=== PATIENT | male | born 1940 | race Caucasian/White ===

== ENCOUNTER → 2020-11-09 | Outpatient (CLI) | payer MEDICARE ==
[~2020-11-09] MED LIST: CLINDAMYCIN IVPB 600MG/50ML 50 ML IV SCH; LACTATED RINGERS 1000ML 1,000 ML IV SCH; ROPIVICAINE 250MG+KETOROLAC 15MG+EPINEPHRINE 0.3+CLONIDINE 80 IV PRN
[2020-11-09 15:22] LABS: EOSINOPHILS % (AUTO) 6.4 % (0.0-8.0); HEMATOCRIT 38.7 % (42-54); LYMPHOCYTES % (AUTO) 37.1 % (21.0-51.0); MEAN CORPUSCULAR HEMOGLOBIN 30.4 pg (27.0-33.0); MEAN CORPUSCULAR HGB CONC 32.8 g/dL (32.0-36.0); MEAN CORPUSCULAR VOLUME 92.6 fL (79-99); NEUTROPHILS % (AUTO) 44.6 % (40.0-77.0); PLATELET COUNT (AUTO) 277 K/uL (130-400); RED BLOOD CELL COUNT(AUTO) 4.18 MIL/uL (4.50-6.20); RED CELL DISTRIBUTION WIDTH 14.3 % (11.0-15.5); WHITE BLOOD COUNT (AUTO) 7.7 K/uL (4.8-10.8)
[2020-11-09 15:34] LABS: CREATININE 1.3 mg/dL (0.5-1.5); POTASSIUM 4.6 mmol/L (3.5-5.1)
[2020-11-09 15:35] LABS: INR 0.97 (0.85-1.15); PROTHROMBIN TIME 10.6 SEC (9.6-11.6)
[2020-11-09 15:36] LABS: PARTIAL THROMBOPLASTIN TIME 26.2 SEC (26.3-35.5)
== END | disposition home or self-care (01) ==
LOC: DAH 10:00 → EDSTATUS 14:00
PROVIDERS: ATTEND Orthopaedic Surgery
DX: Z01.818 Encounter for other preprocedural examination (principal); Z20.822 Contact with and (suspected) exposure to COVID-19; M17.11 Unilateral primary osteoarthritis, right knee; Z79.01 Long term (current) use of anticoagulants
CPT/HCPCS: 36415; 73560; 80048; 85025; 85610; 85730; 87635; 87641; C9803; J3490

== ENCOUNTER 2020-12-06 06:36 | Observation (INO) | payer MEDICARE ==
[2020-12-01 12:47] LABS: BASOPHILS % (AUTO) 0.8 % (0.0-5.0); EOSINOPHILS % (AUTO) 7.3 % (0.0-8.0); HEMATOCRIT 38.7 % (42-54); LYMPHOCYTES % (AUTO) 30.7 % (21.0-51.0); MEAN CORPUSCULAR HEMOGLOBIN 30.5 pg (27.0-33.0); MEAN CORPUSCULAR HGB CONC 32.8 g/dL (32.0-36.0); MEAN CORPUSCULAR VOLUME 92.8 fL (79-99); MONOCYTES % (AUTO) 10.2 % (3.0-13.0); NEUTROPHILS % (AUTO) 50.1 % (40.0-77.0); PLATELET COUNT (AUTO) 304 K/uL (130-400); RED BLOOD CELL COUNT(AUTO) 4.17 MIL/uL (4.50-6.20); RED CELL DISTRIBUTION WIDTH 14.3 % (11.0-15.5); WHITE BLOOD COUNT (AUTO) 7.8 K/uL (4.8-10.8)
[2020-12-01 12:56] LABS: PROTHROMBIN TIME 10.9 SEC (9.6-11.6)
[2020-12-01 12:57] LABS: PARTIAL THROMBOPLASTIN TIME 25.9 SEC (26.3-35.5)
[2020-12-01 13:21] LABS: CREATININE 1.2 mg/dL (0.5-1.5); POTASSIUM 4.3 mmol/L (3.5-5.1)
[2020-12-05 12:53] VITALS: BP 138/64
[~2020-12-06] VITALS: Ht 185.4 cm; Wt 100.7 kg
[2020-12-06] VITALS (26 sets, daily range): BP systolic 140–170; BP diastolic 61–96
[~2020-12-06 06:36] MED LIST changes: +AEC81 PO; -CLINDAMYCIN IVPB 600MG/50ML 50 ML IV SCH; +CORAL CALCIUM PO; +ESOM40CA54 PO; +GLUC-172 PO; -LACTATED RINGERS 1000ML 1,000 ML IV SCH; -ROPIVICAINE 250MG+KETOROLAC 15MG+EPINEPHRINE 0.3+CLONIDINE 80 IV PRN; +[UNRECOGNIZED DRUG - CODE] PO
[2020-12-06] MEDS: LACTATED RINGERS 1000ML 1,000 ML IV SCH ×3 (07:24→11:35)
[2020-12-06] MEDS ORDERED: ROPIVACAINE 0.5% 5MG/ML 30ML IJ ONE (07:26)
[2020-12-06] MEDS ORDERED: DEXAMETHASONE SOD PHOSPHATE 10MG/ML 1ML VIAL ONE (07:27)
[2020-12-06] MEDS ORDERED: LIDOCAINE PF 100MG/5ML (2%) SYRINGE 5ML ONE (07:27)
[2020-12-06] MEDS ORDERED: SUCCINYLCHOLINE CHLORIDE 20 MG/ML 10 ML VIAL ONE (07:27)
[2020-12-06] MEDS ORDERED: ONDANSETRON 4MG INJ ONE (07:27)
[2020-12-06] MEDS ORDERED: GLYCOPYRROLATE 1 MG/5 ML SYRINGE ONE (07:27)
[2020-12-06] MEDS ORDERED: NEOSTIGMINE 5MG/5ML SYR IV ONE (07:28)
[2020-12-06] MEDS ORDERED: PROPOFOL 10 MG/ML 20ML VIAL IV ONE (07:28)
[2020-12-06] MEDS ORDERED: ROCURONIUM 10MG/1ML SYR 10 MG/ML ML ONE (07:28)
[2020-12-06] MEDS ORDERED: CLINDAMYCIN IVPB 600MG/50ML 50 ML IV PRN (08:00)
[2020-12-06] MEDS: CLINDAMYCIN IVPB 600MG/50ML 50 ML IV SCH ×3 (08:15→16:15)
[2020-12-06] MEDS ORDERED: FENTANYL CITRATE PF 50 MCG/1 ML 2ML VIAL ONE (08:25)
[2020-12-06] MEDS ORDERED: EPHEDRINE SULFATE 50 MG/ML AMPULE ONE (08:28)
[2020-12-06] MEDS ORDERED: PHENYLEPHRINE HCL 10 MG/ML 1ML VIAL IV ONE ×2 (08:28)
[2020-12-06] MEDS ORDERED: OXYCODONE HCL 5 MG TAB PO PRN (08:30)
[2020-12-06] MEDS ORDERED: HYDROCODONE/ACETAMINOPHEN 5/325 MG TAB PO PRN (08:30)
[2020-12-06] MEDS ORDERED: ONDANSETRON 4MG INJ IVP PRN (08:30)
[2020-12-06] MEDS: ACETAMINOPHEN 500 MG TABLET PO SCH ×2 (08:30→16:24)
[2020-12-06] MEDS ORDERED: MORPHINE 4 MG SYG IVP PRN ×2 (08:30)
[2020-12-06] MEDS: 0.9%NACL 1000ML 1,000 ML IV SCH ×2 (08:30→18:30)
[2020-12-06] MEDS ORDERED: TRANEXAMIC ACID 1000MG/10ML ONE (08:41)
[2020-12-06] MEDS: ASPIRIN 81 MG EC TAB PO SCH ×2 (09:00→21:10)
[2020-12-06] MEDS: FAMOTIDINE 20MG TAB PO SCH ×2 (09:00→21:10)
[2020-12-06] MEDS: PREGABALIN 25 MG CAP PO SCH ×3 (09:00→21:10)
[2020-12-06] MEDS: POLYETHYLENE GLYCOL 3350 17 GM POWD.PACK PO SCH (09:00)
[2020-12-06] MEDS ORDERED: MEPERIDINE-PF 25 MG/ML SYG ONE (10:48)
[2020-12-06] MEDS: KETOROLAC 15MG/ML VIAL (15MG/ML) IV PRN ×2 (11:30→21:23)
[2020-12-07] MEDS: CLINDAMYCIN IVPB 600MG/50ML 50 ML IV SCH (00:09)
[2020-12-07] MEDS: ACETAMINOPHEN 500 MG TABLET PO SCH ×4 (00:10→17:58)
[2020-12-07 03:47] VITALS: BP 131/71
[2020-12-07 04:04] LABS: HEMATOCRIT 33.4 % (42-54); MEAN CORPUSCULAR HEMOGLOBIN 30.2 pg (27.0-33.0); MEAN CORPUSCULAR HGB CONC 32.9 g/dL (32.0-36.0); MEAN CORPUSCULAR VOLUME 91.8 fL (79-99); RED BLOOD CELL COUNT(AUTO) 3.64 MIL/uL (4.50-6.20); RED CELL DISTRIBUTION WIDTH 14.1 % (11.0-15.5); WHITE BLOOD COUNT (AUTO) 15.8 K/uL (4.8-10.8)
[2020-12-07 04:30] LABS: CREATININE 1.2 mg/dL (0.5-1.5); POTASSIUM 4.5 mmol/L (3.5-5.1)
[2020-12-07] MEDS: 0.9%NACL 1000ML 1,000 ML IV SCH (04:30)
[2020-12-07] MEDS: KETOROLAC 15MG/ML VIAL (15MG/ML) IV PRN ×3 (06:37→17:57)
[2020-12-07 08:00] VITALS: BP_SYST 121; BP_SYST 128; BP_DIAS 53; BP_DIAS 60
[2020-12-07] MEDS ORDERED: ROPIVICAINE 250MG+KETOROLAC 15MG+EPINEPHRINE 0.3+CLONIDINE 80 IV PRN ×10 (08:00)
[2020-12-07] MEDS: PREGABALIN 25 MG CAP PO SCH ×4 (09:00→19:35)
[2020-12-07] MEDS: POLYETHYLENE GLYCOL 3350 17 GM POWD.PACK PO SCH (09:19)
[2020-12-07] MEDS: FAMOTIDINE 20MG TAB PO SCH ×2 (09:19→19:35)
[2020-12-07] MEDS: ASPIRIN 81 MG EC TAB PO SCH ×2 (09:19→19:35)
[2020-12-07 12:00] VITALS: BP 119/50
[2020-12-07 16:00] VITALS: BP 132/59
[2020-12-07 19:52] VITALS: BP 148/64
[2020-12-08] MEDS: ACETAMINOPHEN 500 MG TABLET PO SCH ×3 (00:08→16:30)
[2020-12-08] MEDS: KETOROLAC 15MG/ML VIAL (15MG/ML) IV PRN ×3 (00:08→13:31)
[2020-12-08 00:48] VITALS: BP 155/57
[2020-12-08 04:25] VITALS: BP 157/66
[2020-12-08 08:00] VITALS: BP 153/57
[2020-12-08] MEDS: PREGABALIN 25 MG CAP PO SCH ×2 (09:00→13:29)
[2020-12-08] MEDS: FAMOTIDINE 20MG TAB PO SCH (09:00)
[2020-12-08] MEDS: ASPIRIN 81 MG EC TAB PO SCH (10:36)
[2020-12-08] MEDS: POLYETHYLENE GLYCOL 3350 17 GM POWD.PACK PO SCH (10:36)
[2020-12-08 12:04] VITALS: BP 175/69
[2020-12-09] MEDS ORDERED: BISACODYL 10 MG SUPP.RECT RC PRN (08:30)
== END 2020-12-08 17:22 | disposition home or self-care (01) ==
LOC: DAH 06:36 → DAHIP 06:37 → 4BH 11:07
PROVIDERS: ADMIT Orthopaedic Surgery; ATTEND Orthopaedic Surgery
DX: M17.11 Unilateral primary osteoarthritis, right knee (principal); Z20.822 Contact with and (suspected) exposure to COVID-19; Z79.82 Long term (current) use of aspirin
CPT/HCPCS: 27446; 36415 ×2; 71045; 80048 ×2; 85025; 85027; 85610; 85730; 87635; 87641; 88305; 88311; 93005; 96361; 96365; 96366; 96375; 96376 ×3; 97039 ×5; 97116 ×5; 97161; 97530 ×4; A4215; A4221; A4222; A4223 ×2; A4248; A4649 ×5; A4663; A4930 ×2; A5120; A6212; A9272; C1776; C9803; G0378 ×56; G8978; G8979; G8980; G8981; G8982; G8983; J0330; J1100; J1885 ×8; J2001; J2175; J2370 ×2; J2405; J2704; J2710; J2795; J3010; J3490 ×6; J7030; J7120 ×2; J0171; J0735

== ENCOUNTER → 2023-07-31 | Outpatient (CLI) | payer MEDICARE ==
[~2023-07-31] MED LIST changes: +[UNRECOGNIZED DRUG - CODE] PO; -[UNRECOGNIZED DRUG - CODE] PO
== END | disposition home or self-care (01) ==
LOC: RAH 13:14
PROVIDERS: ATTEND Internal Medicine Gastroenterology
DX: R13.12 Dysphagia, oropharyngeal phase (principal); R63.30 Feeding difficulties, unspecified
CPT/HCPCS: 74230; 92611

== ENCOUNTER → 2024-04-23 | Outpatient (CLI) | payer MEDICARE ==
[~2024-04-23] MED LIST changes: +ATOR20TA65 PO; +CLOP75TA32 PO; +DONE-51 PO; +DORZ10DR10 OP; -ESOM40CA54 PO; +ESOM40CA66 PO; +HYDR25TA PO; +LATA2.5D14 OP; +MEMA5TAB16 PO; +PREG100C56 PO; +TAMS-1 PO
--- NOTE | 2024-04-23 14:44 | HMCIMG ---
US VENOUS DOPPLER UNILATERAL HISTORY: Localized edema COMPARISON: None TECHNIQUE: Right lower extremity venous Doppler ultrasound study was performed. FINDINGS: The common femoral, femoral, popliteal, and posterior tibial veins are visualized. Noncompressible thrombi are seen in the right subclavian, axillary veins consistent with deep venous thrombosis. Noncompressible thrombus is seen in the right basilic vein consistent with superficial thrombophlebitis. Right cephalic vein is patent. IMPRESSION: 1. Noncompressible thrombi are seen in the right subclavian, axillary veins consistent with deep venous thrombosis. Noncompressible thrombus is seen in the right basilic vein consistent with superficial thrombophlebitis.
== END | disposition home or self-care (01) ==
LOC: RAH 13:12
PROVIDERS: ATTEND Urology
DX: I82.491 Acute embolism and thrombosis of other specified deep vein of right lower extremity (principal); R22.31 Localized swelling, mass and lump, right upper limb
CPT/HCPCS: 93971

== ENCOUNTER → 2024-09-03 | Outpatient (CLI) | payer MEDICARE ==
[~2024-09-03] MED LIST changes: -AEC81 PO; +APIX5TAB PO; -CLOP75TA32 PO; -TAMS-1 PO; +TAMS-55 PO
--- NOTE | 2024-09-03 14:44 | HMCSR ---
APPROVED REPORT EXAM: Two-dimensional and M-mode echocardiogram with Doppler and color Doppler. INDICATION ICD: I35.8 2D Dimensions RVDd4.8 cmLVEF(%)65.9 (>50%)LVED Vol(simp.)104.0 mL IVSd0.9 (0.7-1.1cm)FS(%)36 %LVES Vol(simp.)42.0 mL LVDd4.6 (3.8-5.6cm)LA (2D)4.1 (1.6-4.0cm)LVEF(%, simp.)60 % PWd1.0 (0.7-1.1cm)Ao Root(2D)2.8 (2.0-3.7cm)LA ESV INDEX (BP)44.44 mL/m2 IVSs0.9 cmLVOT diam2.4 (1.8-2.4cm) LVDs3.0 (2.5-4.0cm) PWs1.1 cm M-Mode Dimensions EPSS0.6 cm LA (MM)5.0 (1.6-4.0cm) Ao Root(MM)3.1 (2.0-3.7cm) Aortic Valve AoV Vmax2.7 m/Nam Peak GR27.5 mmHgLVOT Vmax0.9 m/s AoV VTI0.5 mAo Mean GR14.6 mmHgLVOT VTI0.26 m ELOINA (VMAX)1.60 cm2Al P1/2T363 msAVA (VTI) 2.3 cm2 Mitral Valve MV E Vmax47.8 cm/sDECEL Ihjd141 ms MV A Vmax53.7 cm/sP 1/2 T67 ms E/A ratio0.9MVA (PHT)3.3 cm2 Tricuspid Valve TR Vmax2.1 m/sRVSP17.1 mmHg TR Peak GR17.1 mmHg Left Ventricle The left ventricle is normal size. There is normal left ventricular wall thickness. LVEF is 60-65%. T he LV diastolic function was unable to be interrogated on this study. Right Ventricle The right ventricle is moderately dilated. The right ventricular systolic function is normal. Atria The left atrium is moderately dilated. The right atrium is mildly dilated. Aortic Valve Aortic valve is trileaflet, thickened and sclerotic. Mild aortic regurgitation is present. There is n o aortic valvular stenosis. Mitral Valve The mitral valve is normal in structure. There is mild mitral valve regurgitation. There is no mitral valve stenosis. Tricuspid Valve The tricuspid valve is normal in structure. There is trace tricuspid valve regurgitation noted. Pulmonic Valve The pulmonary valve is normal in structure. There is no pulmonic valvular regurgitation. Great Vessels The aortic root is normal in size. The IVC is normal in size and collapses >50% with inspiration. Pericardium There is no pericardial effusion. Other Information Quality : FairRhythm : NSR Conclusion LVEF is 60-65%. The left atrium is moderately dilated. There is mild mitral valve regurgitation. Aortic valve sclerosis without stenosis. Mild aortic regurgitation.
== END | disposition home or self-care (01) ==
LOC: RAH 10:49
PROVIDERS: ATTEND Family Medicine
DX: I08.0 Rheumatic disorders of both mitral and aortic valves (principal); I35.8 Other nonrheumatic aortic valve disorders
CPT/HCPCS: 93306